=== PATIENT | female | born 1995 | race Caucasian/White ===

== ENCOUNTER 2016-03-26 08:19 | Emergency (ER) | payer SELFPAY ==
[~2016-03-26] VITALS: Ht 147.3 cm; Wt 50.0 kg
[2016-03-26 08:35] VITALS: BP 121/79; PULSE 105; RESP 16; TEMP 97.8; O2SAT 100
--- NOTE | 2016-03-26 09:39 | PD ---
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 She complains of vaginal bleeding. She started her menstrual period on the normal time but it is gone several days past where her normal period would've stopped. It is not heavier than usual. sHe does not think she is . No discharge or fever. Symptoms severity is mild. No alleviating factors. No presyncopal symptoms. Duration 10 days PFSH Past Medical History Medical History: Denies Significant Hx ?: Not LMP: 3-4 days ago Past Surgical History Surgical History: No Previous Surgery Social History Alcohol Use: No Tobacco Use: No Substance Use: No Allergies-Medications (Allergen,Severity, Reaction): Coded Allergies: No Known Allergies (Unverified , 03/26/16) Reported Meds & Prescriptions Reported Meds & Active Scripts Active No Active Prescriptions or Reported Medications Review of Systems General / Constitutional: No: Fever Eyes: No: Visual changes HENT: No: Headaches Cardiovascular: No: Chest Pain or Discomfort Respiratory: No: Shortness of Breath Gastrointestinal: No: Abdominal Pain Genitourinary: Positive: Vaginal Bleeding, No: Dysuria Musculoskeletal: No: Pain Skin: No Rash Neurologic: No: Weakness Psychiatric: No: Depression Endocrine: No: Polydipsia Hematologic/Lymphatic: No: Easy Bruising Physical Exam Narrative GASTROINTESTINAL: Abdomen soft, non-tender, nondistended. Positive bowel sounds. No hepato-splenomegaly, or palpable masses. No guarding. SKIN: Inspection shows no rash or ulcers. Palpation shows no induration or nodules. Pelvic: Scant blood in the vault. No cervical motion tenderness. No adnexal mass appreciated Data Data Last Documented VS Vital Signs Date Time Temp Pulse Resp B/P Pulse Ox O2 Delivery O2 Flow Rate FiO2 03/26/16 08:35 97.8 105 16 121/79 100 Orders Ed Urine Pregnancytest Poc (03/26/16 09:34) MDM Medical Decision Making Medical Screen Exam Complete: Yes Emergency Medical Condition: Yes Medical Record Reviewed: Yes Differential Diagnosis Ectopic , dysfunctional uterine bleeding, cervicitis Narrative Course I have reviewed the patient's electronic medical record. Urine is negative Recommending outpatient [facility] follow-up Likely hormonal cause Diagnosis Primary Impression: Vaginal bleeding Additional Instructions: The patient was advised to follow up with pet sitter and return if they worsen. Med/Other Pt SpecificInfo: Other Scripts No Active Prescriptions or Reported Meds Disposition: 01 DISCHARGE HOME Condition: Stable Rizwan Moreland MD Mar 26, 2016 09:39
[2016-03-26 10:31] VITALS: BP 122/75
== END 2016-03-26 10:32 | disposition home or self-care (01) ==
LOC: PHED 08:19
DX: N93.9 Abnormal uterine and vaginal bleeding, unspecified (principal)
CPT/HCPCS: 84703; 99283